=== PATIENT | male | born 1945 | race Caucasian/White ===

== ENCOUNTER → 2020-05-19 08:17 | Outpatient (CLI) | payer OTHER, SELFPAY ==
--- NOTE | ~2020-05-19 | CT_ITS ---
EXAMINATION: CT lumbar spine wo con EXAM DATE: 05/19/2020 08:52 INDICATION: Low back pain, post operative, laminectomy. TECHNIQUE: Spiral CT of the lumbar spine was performed without contrast. Axial, coronal and sagittal images were reviewed. The dose-length product (DLP) for this examination was 1001.38 mGy-cm. The exposure was tailored according to patient size (auto mA exposure control), and iterative reconstruct ion (ASIR) was used as additional dose reduction technique. Comparison is made to prior examination f rom 07/03/2019. FINDINGS: Previous exam had laminectomies at L3 and L4. There are now also laminectomies at L2 and L3 , and there has been interval insertion of posterior and interbody fusion L2-L4. There is no solid [place] bridging at this point. There is grade 2 anterolisthesis L3 on L4, grade 1 anterolisthesis L2 on L 3. There is lucency surrounding the L4 pedicular screws suggesting some component of loosening. No carcamo rdware fracture. There are no acute fractures identified. Extensive arterial sclerosis. Level by level evaluation: T12-L1: There is a mild diffuse disc bulge. Facet arthropathy: Mild. Neural foraminal stenosis: Moderate to severe left, moderate right. Central canal stenosis: Mild. L1-L2: There is a mild diffuse disc bulge. Facet arthropathy: Moderate to severe. Neural foraminal stenosis: Moderate to severe left, moderate right. Central canal stenosis: Posterior decompression. L2-L3: Interbody device without solid bone bridging. Facet arthropathy: Severe right, mild to moderate left. Neural foraminal stenosis: Moderate left, mild to moderate right. Central canal stenosis: Posterior decompression. L3-L4: Interbody device without solid bone bridging. Facet arthropathy: Severe, but fused. Left-sided spondylolysis. Neural foraminal stenosis: Moderate right, mild to moderate left. Central canal stenosis: Posterior decompression. L4-L5: There is a mild to moderate diffuse disc bulge. Facet arthropathy: Severe. Neural foraminal stenosis: Moderate bilateral. Central canal stenosis: Posterior decompression. L5-S1: There is a mild to moderate diffuse disc bulge. Facet arthropathy: Severe left, moderate right. Neural foraminal stenosis: Moderate bilateral. Central canal stenosis: Mild. IMPRESSION: 1. Lucency surrounding L4 posterior pedicular screws, could indicate loosening. 2. No solid bone bridging at the L2-3 and 3-4 interbody devices. 3. Moderate to severe lumbar spondylosis. Reviewed, dictated and finalized at location A. IMPRESSION: 1. Lucency surrounding L4 posterior pedicular screws, could indicate loosening . 2. No solid bone bridging at the L2-3 and 3-4 interbody devices. 3. Moderate to severe lumbar spondylosis.
== END ==
PROVIDERS: Visit Provider Neurological Surgery
DX: Z98.890 Other specified postprocedural states (principal); M47.816 Spondylosis without myelopathy or radiculopathy, lumbar region
CPT/HCPCS: 72131

== ENCOUNTER → 2020-10-06 14:00 | Outpatient (CLI) | payer OTHER, SELFPAY ==
--- NOTE | ~2020-10-06 | CT_ITS ---
EXAMINATION: CT lumbar spine wo con DATE: 10/06/2020 14:26 INDICATION: Low back pain. Lumbar spinal stenosis. TECHNIQUE: Computed tomography (CT) of the lumbar spine was performed without intravenous contrast. A utomated exposure control and iterative reconstruction technique were employed. The dose-length produ ct was 958.90 mGy-cm. COMPARISON: CT lumbar spine 05/19/2020 FINDINGS: There is 4 degrees levocurvature of lumbar spine. There is 5 mm anterolisthesis of L2 on L3 and 11 mm anterolisthesis of L3 on L4. There are changes of anterior fusion procedure at L2-L3 and L 3-L4 with interbody devices, but no bridging bone. The interbody device at L2-L3 extends 2 mm posteri or to the endplates. There is mildly decreased disc height at L4-L5. There is vacuum disc phenomenon at multiple levels. There are changes of posterior fusion procedure from L2 to L4 with pedicle screws . There are lucencies around the left L4 screw with continuity with the L3-L4 disc space. The right L 4 screw breeches the medial cortex of the pedicle. There are laminectomies from L2 to L4. Partially v isualized are epidural electrodes in thoracic spine. There is a 6.6 cm cyst in right kidney. There ar e stents in the common and external iliac arteries. The following disc levels are specifically discus sed: L1-L2: The disc is bulging. There is severe bilateral facet joint osteoarthritis. There is moderate r ight and severe left neural foraminal stenosis. There is mild central canal stenosis with posterior d ecompression. L2-L3: There is severe bilateral facet joint osteoarthritis. There is moderate right and mild left ne ural foraminal stenosis. There is mild central canal stenosis with posterior decompression. L3-L4: There is moderate right facet joint hypertrophy. 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 There is mild hypertrophy of the left facet joint. There is moderate right and mild left neural foraminal stenosis. There is mild central canal stenosis with posterior decompression. L4-L5: The disc is bulging. There is severe bilateral facet joint osteoarthritis. There is moderate b ilateral neural foraminal stenosis. There is mild central canal stenosis with posterior decompression . L5-S1: The disc is bulging. There is severe bilateral facet joint osteoarthritis. There is mild right and moderate left neural foraminal stenosis. There is mild central canal stenosis. IMPRESSION: 1. Anterior fusion procedures at L2-L3 and L3-L4 without bridging bone. 2. Posterior fusion procedures from L2 to L4 with stable lucencies around the left L4 screw, consiste nt with loosening versus infection. 3. Stable severe lumbar spondylosis. Reviewed, dictated and finalized at location A. [employer] IMPRESSION: 1. Anterior fusion procedures at L2-L3 and L3-L4 without bridging bone. 2. Posterior fusion procedures from L2 to L4 with stable lucencies around the l eft L4 screw, consistent with loosening versus infection. 3. Stable severe lumbar spondylosis.
== END ==
PROVIDERS: PCP Internal Medicine; Visit Provider Neurological Surgery
DX: M48.061 Spinal stenosis, lumbar region without neurogenic claudication (principal); M47.816 Spondylosis without myelopathy or radiculopathy, lumbar region; Z98.1 Arthrodesis status
CPT/HCPCS: 72131